=== PATIENT | male | born 1940 | race Caucasian/White ===

== ENCOUNTER → 2016-09-18 | Outpatient (CLI) | payer MEDICARE, BC ==
[~2016-09-18] MED LIST: ASPI-515 PO; CARI350T PO; CHOL200024 PO; CLON2TAB2 PO; DONE10TA7 PO; DOXE100C PO; ESCI20TA PO; METO10TA2 PO; MORP30CA15 PO; NAPR500T8 PO; OXYC1TAB9 PO; OXYC60TA8 PO; SIMV20TA3 PO; TOPI50TA4 PO
== END | disposition home or self-care (01) ==
LOC: CFH 13:34
PROVIDERS: ATTEND Pain Medicine Pain Medicine
DX: Z02.9 Encounter for administrative examinations, unspecified (principal)

== ENCOUNTER 2018-10-25 06:55 | Emergency (ER) | payer MEDICARE, BC ==
[~2018-10-25] VITALS: Ht 175.3 cm; Wt 81.8 kg
[~2018-10-25 06:55] MED LIST changes: -CLON2TAB2 PO; +CLON2TAB9 PO; +OXYC-432 PO; -OXYC1TAB9 PO; -TOPI50TA4 PO; +TOPI50TA8 PO
--- NOTE | 2018-10-25 07:12 | NUR ---
PT BIB [facility] WITH COMPLAINTS OF A GLF AND PAIN 9/10 IN HIS BACK AND "ALL OVER" PT HAS ODOR OF ETOH ON HIS BREATH. PT STATES HE HAS FALLEN 4 TIMES IN THE PAST MONTH. PT HAS O2 SATS IN THE MID TO LOW 80'S. 1 L O2 VIA NASAL CANNULA APPLIED AND O2 SATS IMPROVED TO 96%
--- NOTE | 2018-10-25 07:37 | NUR ---
PT MEDICATED FOR PAIN PER [facility]
[2018-10-25 08:25] VITALS: BP 148/95
== END 2018-10-25 09:27 | disposition home or self-care (01) ==
LOC: ED 09:18
DX: S39.012A Strain of muscle, fascia and tendon of lower back, initial encounter (principal); M51.34 Other intervertebral disc degeneration, thoracic region; M51.36 Other intervertebral disc degeneration, lumbar region; Z90.49 Acquired absence of other specified parts of digestive tract; Z85.46 Personal history of malignant neoplasm of prostate; W18.30XA Fall on same level, unspecified, initial encounter; Y93.89 Activity, other specified; Y92.009 Unspecified place in unspecified non-institutional (private) residence as the place of occurrence of the external cause; Y99.8 Other external cause status
CPT/HCPCS: 72072; 72110; 99283

== ENCOUNTER 2018-11-26 13:45 | Inpatient (IN) | payer MEDICARE, BC ==
[~2018-11-26] VITALS: Ht 172.7 cm; Wt 81.0 kg
[~2018-11-26 13:45] MED LIST changes: +AMLO-150 PO; +CLON2TAB16 PO; +DEXA4TAB PO; +DEXA4TAB66 PO; +PANT40TA5 PO
--- NOTE | 2018-11-26 13:53 | NUR ---
DR COPE AT BEDSIDE TO EVAL PT. PT ARRIVED VIA EMS. PER REPORT PT "SLAMMED MY HAND AGAINST THE DOOR. I WALK WITH A WALKER" PT WITH FULL THICKNESS WOUND TO RIGHT FOREARM
[2018-11-26] MEDS ORDERED: L.E.T SOLUTION TP ONE ×2 (14:00→14:09)
[2018-11-26] MEDS ORDERED: THIAMINE 100MG TABLET PO ONE (14:00)
[2018-11-26] MEDS ORDERED: CEFAZOLIN 1,000 MG IM ONE (14:00)
--- NOTE | 2018-11-26 14:05 | NUR ---
REPORT TO BLUE ARRIOLA
[2018-11-26] MEDS ORDERED: CEFAZOLIN 1,000 MG ONE (14:09)
[2018-11-26] MEDS ORDERED: THIAMINE 100MG TABLET ONE (14:09)
--- NOTE | 2018-11-26 14:20 | NUR ---
ANCEF GIVEN AFTER VERIFIED WITH MD NO BLOOD CULTURES NEEDED FIRST
[2018-11-26 14:22] LABS: BASOPHILS # (AUTO) 0.02 x10^3/uL (0-0.1); BASOPHILS % (AUTO) 0 % (0-1); EOSINOPHILS % (AUTO) 0 % (1-7); LYMPHOCYTES # (AUTO) 0.45 x10^3/uL (1-3.4); LYMPHOCYTES % (AUTO) 5 % (22-44); MD NO; MEAN CORPUSCULAR HEMOGLOBIN 32.2 pg (27.5-34.5); MEAN CORPUSCULAR HGB CONC 32.9 g/dL (33.2-36.2); MEAN CORPUSCULAR VOLUME 97.7 fL (81-97); MEAN PLATELET VOLUME 6.7 fL (7.4-10.4); MONOCYTES # (AUTO) 0.67 x10^3/uL (0.2-0.8); MONOCYTES % (AUTO) 8 % (2-9); NEUTROPHILS # (AUTO) 7.24 x10^3/uL (1.8-6.8); NEUTROPHILS % (AUTO) 86 % (42-75); PLATELET COUNT 370 x10^3/uL (130-400); RED BLOOD COUNT 4.12 x10^6/uL (4.38-5.82)
[2018-11-26 14:33] LABS: ALANINE AMINOTRANSFERASE 17 U/L (12-78); ALBUMIN 3.1 g/dL (3.4-5.0); ANION GAP 21 mmol/L (5-15); CALCIUM 8.1 mg/dL (8.5-10.1); CHLORIDE 106 mmol/L (98-107); CREATININE 1.12 mg/dL (0.7-1.3)
[2018-11-26 14:35] LABS: ALKALINE PHOSPHATASE 178 U/L (45-117); BILIRUBIN,TOTAL 0.3 mg/dL (0.2-1.0); TOTAL PROTEIN 6.1 g/dL (6.4-8.2)
[2018-11-26] MEDS ORDERED: SODIUM CHLORIDE 0.9% 1,000 ML IV ONE (14:43)
[2018-11-26] MEDS ORDERED: SODIUM CHLORIDE FLUSH 10ML SYR IVF ONE (15:00)
[2018-11-26] MEDS ORDERED: SODIUM CHLORIDE 0.9% 1,000ML IVBOLUS ONE (15:00)
[2018-11-26] MEDS ORDERED: LIDOCAINE-MPF 1%, 5ML ONE ×2 (15:53→16:22)
[2018-11-26] MEDS ORDERED: LIDOCAINE 1%, 10ML INFIL ONE (16:00)
--- NOTE | 2018-11-26 16:00 | NUR ---
PT WANTING TO GET UP TO [facility]. SBA PROVIDED. PT WITH INCREASED ANXIETY WHILE SITTING ON COMMODE. INCREASED HR AND RR. ENC RELAXATION BREATHING. "I NEED SOMETHING FOR MY ANXIETY" PT ASSISTED BACK TO [facility]. WILL DISCUSS WITH . PT REPEATIVE AT TIMES "WHAT IS THE PLAN FOR ME?" PT STATES YEAR "2018" PLACE "[facility]
[2018-11-26] MEDS ORDERED: LORazepam 2 MG/ML, 1ML ONE (16:23)
[2018-11-26] MEDS ORDERED: LORazepam 2 MG/ML, 1ML IVPush ONE (16:30)
[2018-11-26 16:34] LABS: ACETONE, SERUM Trace (10mg/dL) mg/dL (Negative)
--- NOTE | 2018-11-26 16:55 | NUR ---
PA COMPLETING SUTURING. PT LESS SHAKY SINCE MEDICATED FOR ANXIETY. FLUIDS CONTINUE TO INFUSE
[2018-11-26] MEDS ORDERED: LORazepam 2 MG/ML, 1ML IVPush PRN ×2 (17:00→17:30)
--- NOTE | 2018-11-26 17:14 | NUR ---
UOB WITH ASSISTANCE. HR UP TO 140 WHEN STANDING AND RATE OF BREATHING INCREASED. HR BACK DOWN WHEN RETURNED TO [facility]
--- NOTE | 2018-11-26 17:23 | NUR ---
REPORT TO XANDER ARRIOLA. PT TO BE TRANSPORTED
[2018-11-26] MEDS ORDERED: HALOPERIDOL 5 MG/ML IM PRN (17:30)
--- NOTE | 2018-11-26 17:32 | NUR ---
HOSPITALIST AT BEDSIDE
[2018-11-26] MEDS: SODIUM CHLORIDE 0.9% 1,000 ML IV SCH (17:44)
[2018-11-26] MEDS ORDERED: hydrALAzine 20 MG/ML, 1ML IVPush PRN (18:00)
[2018-11-26] MEDS ORDERED: ONDANSETRON 2MG/ML, 2ML IVPush PRN (18:00)
[2018-11-26] MEDS ORDERED: ACETAMINOPHEN 325 MG TABLET PO PRN (18:00)
[2018-11-26 18:28] VITALS: BP 158/99
[2018-11-26] MEDS: MORPHINE SULFATE 4 MG/ML, 1ML IVPush PRN ×2 (20:10→23:27)
[2018-11-26] MEDS: POTASSIUM CHLORIDE 20 MEQ, MAGNESIUM SULFATE 1 GM, FOLIC ACID 1 MG, THIAMINE 200 MG, MV... IV SCH (20:11)
[2018-11-26] MEDS: PANTOPROZOLE 40MG TABLET PO SCH (20:11)
[2018-11-26] MEDS: DOXEPIN 100 MG CAPSULE PO SCH (22:13)
[2018-11-27 00:32] LABS: MICROSCOPIC AUTO
[2018-11-27 00:33] LABS: CULTURE INDICATED? NO
[2018-11-27 00:44] LABS: AMPHETAMINE SCREEN, URINE Negative (Negative); BARBITURATE SCREEN, URINE Negative (Negative); BENZODIAZEPINE SCREEN, URINE Negative (Negative); CANNABINOID SCREEN, URINE Positive (Negative); COCAINE SCREEN, URINE Negative (Negative); METHADONE SCREEN, URINE Negative (Negative); OPIATE SCREEN, URINE Positive (Negative)
[2018-11-27 00:49] VITALS: BP 120/77
[2018-11-27] MEDS: MORPHINE SULFATE 4 MG/ML, 1ML IVPush PRN ×5 (04:07→21:13)
[2018-11-27 06:03] LABS: CALCIUM 7.8 mg/dL (8.5-10.1); CHLORIDE 105 mmol/L (98-107)
[2018-11-27 06:09] LABS: ALANINE AMINOTRANSFERASE 17 U/L (12-78); ALBUMIN 2.8 g/dL (3.4-5.0); ALKALINE PHOSPHATASE 153 U/L (45-117); ANION GAP 7 mmol/L (5-15); BILIRUBIN,TOTAL 0.8 mg/dL (0.2-1.0); CREATININE 0.87 mg/dL (0.7-1.3); TOTAL PROTEIN 5.5 g/dL (6.4-8.2)
[2018-11-27] MEDS: PANTOPROZOLE 40MG TABLET PO SCH ×3 (07:34→20:02)
[2018-11-27 08:03] VITALS: BP 150/84
[2018-11-27] MEDS: ESCITALOPRAM 10MG TABLET PO SCH (08:43)
[2018-11-27] MEDS ORDERED: HALOPERIDOL 5 MG/ML IM PRN (09:30)
[2018-11-27] MEDS: LORazepam 2 MG/ML, 1ML IVPush PRN ×2 (11:12→16:55)
[2018-11-27 13:25] VITALS: BP 157/96
[2018-11-27] MEDS: SODIUM CHLORIDE 0.9% 1,000 ML IV SCH (13:55)
[2018-11-27] MEDS ORDERED: POTASSIUM PHOSPHATE 44 MEQ in SODIUM CHLORIDE 0.9% 500 ML IV ONE (16:30)
[2018-11-27] MEDS ORDERED: POTASSIUM CHLORIDE 20 MEQ TAB.ER.PRT PO ONE (16:30)
[2018-11-27] MEDS: DOXEPIN 100 MG CAPSULE PO SCH (20:02)
[2018-11-27 21:12] VITALS: BP 115/73
[2018-11-28 01:09] VITALS: BP 125/82
[2018-11-28] MEDS: POTASSIUM CHLORIDE 20 MEQ, MAGNESIUM SULFATE 1 GM, FOLIC ACID 1 MG, THIAMINE 200 MG, MV... IV SCH (01:32)
[2018-11-28] MEDS: LORazepam 2 MG/ML, 1ML IVPush PRN (04:24)
[2018-11-28 06:04] LABS: CHLORIDE 107 mmol/L (98-107)
[2018-11-28 06:09] LABS: ANION GAP 7 mmol/L (5-15); CALCIUM 7.6 mg/dL (8.5-10.1); CREATININE 0.83 mg/dL (0.7-1.3)
[2018-11-28] MEDS: SODIUM CHLORIDE 0.9% 1,000 ML IV SCH (07:30)
[2018-11-28] MEDS: PANTOPROZOLE 40MG TABLET PO SCH ×2 (07:30→09:15)
[2018-11-28 08:18] VITALS: BP 150/96
[2018-11-28] MEDS: ESCITALOPRAM 10MG TABLET PO SCH (09:15)
[2018-11-28] MEDS ORDERED: LIDODERM 5% PATCH TD SCH (10:30)
[2018-11-28] MEDS ORDERED: MAGNESIUM OXIDE 400 MG TABLET PO SCH (11:00)
[2018-11-28] MEDS ORDERED: FOLIC ACID 1 MG TABLET PO SCH (11:00)
[2018-11-28] MEDS ORDERED: MULTIVITAMIN 1 TABLET PO SCH (11:00)
[2018-11-28] MEDS ORDERED: THIAMINE 100MG TABLET PO SCH (11:00)
[2018-11-28] MEDS ORDERED: OXYcodone/APAP 5/325MG TABLET PO PRN (11:00)
[2018-11-28] MEDS ORDERED: LIDO700A20 TD (13:02)
[2018-11-28] MEDS ORDERED: TRAM50TA2 PO (13:02)
[2018-11-28] MEDS ORDERED: FOLI-17 PO (13:02)
[2018-11-28] MEDS ORDERED: MAGN400T50 PO (13:02)
[2018-11-28] MEDS ORDERED: MULT1TAB60 PO (13:02)
[2018-11-28] MEDS ORDERED: THIA100T67 PO (13:02)
[2018-11-28] MEDS ORDERED: SIMV10TA PO (13:03)
[2018-11-28 13:27] VITALS: BP 148/83
== END 2018-11-28 17:00 | DRG 605 ==
LOC: ED 16:27 → SUATTDRO 16:42 → 4WST 18:21
PROVIDERS: ADMIT Internal Medicine; ATTEND Internal Medicine
PROC: 0HQDXZZ Repair Right Lower Arm Skin, External Approach (ICD-10-PCS; principal; 2018-11-26)
DX: S51.811A Laceration without foreign body of right forearm, initial encounter (principal); E87.2 Acidosis; F11.20 Opioid dependence, uncomplicated; I50.32 Chronic diastolic (congestive) heart failure; F10.239 Alcohol dependence with withdrawal, unspecified; F10.229 Alcohol dependence with intoxication, unspecified; E83.39 Other disorders of phosphorus metabolism; E78.5 Hyperlipidemia, unspecified; E86.0 Dehydration; F32.9 Major depressive disorder, single episode, unspecified; G89.4 Chronic pain syndrome; I11.0 Hypertensive heart disease with heart failure; M79.7 Fibromyalgia; W18.39XA Other fall on same level, initial encounter; F12.90 Cannabis use, unspecified, uncomplicated; R29.6 Repeated falls; M54.5 Low back pain; R00.0 Tachycardia, unspecified; Z80.0 Family history of malignant neoplasm of digestive organs; Z85.46 Personal history of malignant neoplasm of prostate; Z92.3 Personal history of irradiation; Y93.89 Activity, other specified; Y92.89 Other specified places as the place of occurrence of the external cause; Y99.8 Other external cause status
CPT/HCPCS: 12034; 36415; 70450; 71045; 80048; 80053; 80307; 81001; 82010; 83605; 83735; 84100; 84145; 85025; 87040; 93005; 96372; 96374; 99291; G0378; J0690; J2405; J3411; J3475; J3480; J7070; J2060; J2270; J7030; J7040

== ENCOUNTER 2018-11-28 14:13 | Inpatient (IN) | payer MEDICARE, BC ==
[~2018-11-28] VITALS: Ht 175.3 cm; Wt 78.3 kg
[~2018-11-28 14:13] MED LIST changes: +FOLI-17 PO; +LIDO700A20 TD; +MAGN400T50 PO; +MULT1TAB60 PO; +SIMV10TA PO; +THIA100T67 PO; +TRAM50TA2 PO
[2018-11-28] MEDS ORDERED: POLYETHYLENE GLYCOL 17 GM PACKET PO PRN (14:30)
[2018-11-28] MEDS ORDERED: DOCUSATE 100 MG CAPSULE PO PRN (14:30)
[2018-11-28] MEDS ORDERED: BISACODYL 10 MG SUPP PR PRN (14:30)
[2018-11-28] MEDS ORDERED: PLEASE ENTER HEIGHT AND WEIGHT MC SCH (17:26)
[2018-11-28 17:58] VITALS: BP 148/79
[2018-11-28 18:18] LABS: ALBUMIN 2.5 g/dL (3.4-5.0); ANION GAP 6 mmol/L (5-15); CHLORIDE 106 mmol/L (98-107)
[2018-11-28 18:46] LABS: ALANINE AMINOTRANSFERASE 19 U/L (12-78); ALKALINE PHOSPHATASE 144 U/L (45-117); BILIRUBIN,TOTAL 0.4 mg/dL (0.2-1.0); CHOL/HDL RATIO 1.8; CHOLESTEROL, TOTAL 131 mg/dL (140-239); CREATININE 0.98 mg/dL (0.7-1.3); HDL CHOL % 56 % (26-37); HDL CHOLESTEROL (DIRECT) 74 mg/dL (40-60); LDL CHOLESTEROL,CALCULATED 44 mg/dL (54-169); LDL/HDL RATIO 0.6 (0.5-3.0); TOTAL PROTEIN 5.5 g/dL (6.4-8.2); TRIGLYCERIDES 64 mg/dL (50-200); VLDL CHOLESTEROL 13 mg/dL (0-25)
[2018-11-28 19:26] LABS: HCT (SEDRATE) 33.4 % (39.2-51.8); MEAN CORPUSCULAR HEMOGLOBIN 33.8 pg (27.5-34.5); MEAN CORPUSCULAR HGB CONC 33.6 g/dL (33.2-36.2); MEAN CORPUSCULAR VOLUME 100.6 fL (81-97); MEAN PLATELET VOLUME 6.7 fL (7.4-10.4); PLATELET COUNT 219 x10^3/uL (130-400); RED BLOOD COUNT 3.32 x10^6/uL (4.38-5.82); RED CELL DISTRIBUTION WIDTH 15.3 % (9.4-14.8)
[2018-11-28 19:28] LABS: MD YES
[2018-11-28 19:29] LABS: EOS#(MANUAL) 0.05 x10^3/uL (0.0-0.4); EOS% (MANUAL) 1 % (1-7); LYMPHS% (MANUAL) 22 % (22-44); MONOS% (MANUAL) 6 % (2-9); REACTIVE LYMPHS % (MANUAL) 2 % (0-0); SEG#(MANUAL) 3.45 x10^3/uL (1.8-6.8); SEGS% (MANUAL) 69 % (42-75)
[2018-11-28 19:30] LABS: <PLATELET ESTIMATE> ADEQUATE; ANISOCYTOSIS 1+; LARGE PLATELETS 1+; TOXIC GRAN 1+
[2018-11-28 20:13] VITALS: BP 148/79
[2018-11-28] MEDS ORDERED: MELATONIN 3 MG TABLET ONE (20:44)
[2018-11-28] MEDS ORDERED: MELATONIN 3 MG TABLET PO SCH (21:00)
[2018-11-29] MEDS: ONDANSETRON ODT 4 MG PO PRN (00:59)
[2018-11-29 02:39] LABS: MICROSCOPIC NOT IND
[2018-11-29 02:41] LABS: CULTURE INDICATED? NO
[2018-11-29 07:23] VITALS: BP 137/75
[2018-11-29] MEDS: BUPRENORPHINE/NALOXONE 2-0.5MG SL SCH (15:19)
[2018-11-29] MEDS: TIZANIDINE 4MG TABLET PO SCH ×3 (15:24→20:29)
[2018-11-29] MEDS: DULOXETINE 30 MG CAPSULE.DR PO SCH ×2 (16:23→20:29)
[2018-11-29 20:06] VITALS: BP 134/73
[2018-11-30 07:35] VITALS: BP 134/86
[2018-11-30] MEDS: DULOXETINE 30 MG CAPSULE.DR PO SCH ×2 (08:53→20:52)
[2018-11-30] MEDS: TIZANIDINE 4MG TABLET PO SCH ×3 (09:00→20:52)
[2018-11-30] MEDS: BUPRENORPHINE/NALOXONE 2-0.5MG SL SCH (11:06)
[2018-11-30] MEDS ORDERED: LIDODERM 5% PATCH TD ONE (13:00)
[2018-11-30 17:12] VITALS: BP 150/92
[2018-11-30 20:00] VITALS: BP 121/86
[2018-12-01 07:10] VITALS: BP 148/91
[2018-12-01] MEDS: BUPRENORPHINE/NALOXONE 2-0.5MG SL SCH (07:59)
[2018-12-01] MEDS: TIZANIDINE 4MG TABLET PO SCH ×3 (07:59→21:16)
[2018-12-01] MEDS: DULOXETINE 30 MG CAPSULE.DR PO SCH ×2 (08:31→21:16)
[2018-12-01] MEDS ORDERED: LIDODERM 5% PATCH TD SCH (09:00)
[2018-12-01] MEDS: ONDANSETRON ODT 4 MG PO PRN (12:17)
[2018-12-01] MEDS: LIDOCAINE GEL 2%, 5ML TP PRN (12:35)
[2018-12-01 21:21] VITALS: BP 121/77
[2018-12-02 07:30] VITALS: BP 155/75
[2018-12-02] MEDS: DULOXETINE 30 MG CAPSULE.DR PO SCH ×2 (08:39→20:26)
[2018-12-02] MEDS: BUPRENORPHINE/NALOXONE 2-0.5MG SL SCH (08:40)
[2018-12-02] MEDS: TIZANIDINE 4MG TABLET PO SCH ×3 (08:40→20:26)
[2018-12-02] MEDS: ONDANSETRON ODT 4 MG PO PRN (08:58)
[2018-12-02 19:30] VITALS: BP 105/66
[2018-12-02] MEDS: LIDOCAINE GEL 2%, 5ML TP PRN (21:12)
[2018-12-03 02:49] LABS: MICROSCOPIC NOT IND
[2018-12-03 03:05] LABS: CULTURE INDICATED? NO
[2018-12-03] MEDS ORDERED: PHENAZOPYRIDINE 100 MG TABLET PO ONE (07:00)
[2018-12-03 07:26] VITALS: BP 117/82
[2018-12-03] MEDS: DULOXETINE 30 MG CAPSULE.DR PO SCH ×2 (07:36→20:09)
[2018-12-03] MEDS: BUPRENORPHINE/NALOXONE 2-0.5MG SL SCH (07:37)
[2018-12-03] MEDS: TIZANIDINE 4MG TABLET PO SCH ×3 (07:37→20:09)
[2018-12-03 15:46] LABS: MEAN CORPUSCULAR HEMOGLOBIN 33.1 pg (27.5-34.5); MEAN CORPUSCULAR HGB CONC 32.9 g/dL (33.2-36.2); MEAN CORPUSCULAR VOLUME 100.6 fL (81-97); MEAN PLATELET VOLUME 6.9 fL (7.4-10.4); PLATELET COUNT 450 x10^3/uL (130-400); RED CELL DISTRIBUTION WIDTH 15.5 % (9.4-14.8)
[2018-12-03 15:47] LABS: MD YES
[2018-12-03 15:50] LABS: BAND#(MANUAL) 0.05 x10^3/uL; BANDS%(MANUAL) 1 % (0-7); BASOS#(MANUAL) 0.05 x10^3/uL (0-0.1); BASOS% (MANUAL) 1 % (0-1); METAMYELOCYTES# (MANUAL) 0.05 x10^3/uL (0-0); METAMYELOCYTES% (MANUAL) 1 % (0-1)
[2018-12-03 15:51] LABS: SEGS% (MANUAL) 45 % (42-75)
[2018-12-03 15:55] LABS: EOS#(MANUAL) 0.25 x10^3/uL (0.0-0.4); EOS% (MANUAL) 5 % (1-7); LYMPH#(MANUAL) 1.42 x10^3/uL (1-3.4); LYMPHS% (MANUAL) 29 % (22-44); MONOS#(MANUAL) 0.74 x10^3/uL (0.3-2.7); MONOS% (MANUAL) 15 % (2-9); MYELOCYTES# (MANUAL) 0.05 x10^3/uL (0-0); MYELOCYTES% (MANUAL) 1 % (0-0); REACTIVE LYMPHS % (MANUAL) 2 % (0-0); SEG#(MANUAL) 2.21 x10^3/uL (1.8-6.8)
[2018-12-03 16:02] LABS: ANISOCYTOSIS 1+; SMUDGE CELLS 1+
[2018-12-03 16:03] LABS: <PLATELET ESTIMATE> INCREASED; LARGE PLATELETS 1+
[2018-12-03 18:43] VITALS: BP 124/73
[2018-12-03 19:31] VITALS: BP 112/77
[2018-12-03] MEDS: CEPHALEXIN 500 MG CAPSULE PO SCH (20:09)
[2018-12-03] MEDS: LIDOCAINE GEL 2%, 5ML TP PRN (20:53)
[2018-12-03] MEDS ORDERED: MELATONIN 3 MG TABLET PO SCH (21:00)
[2018-12-04] MEDS: LIDOCAINE GEL 2%, 5ML TP PRN (04:26)
[2018-12-04 07:28] VITALS: BP 153/102
[2018-12-04] MEDS: TIZANIDINE 4MG TABLET PO SCH ×3 (07:29→20:01)
[2018-12-04] MEDS: BUPRENORPHINE/NALOXONE 2-0.5MG SL SCH ×2 (07:29→20:02)
[2018-12-04] MEDS: DULOXETINE 30 MG CAPSULE.DR PO SCH ×2 (07:29→20:01)
[2018-12-04] MEDS: CEPHALEXIN 500 MG CAPSULE PO SCH ×2 (07:29→20:01)
[2018-12-04 08:52] VITALS: BP 130/91
[2018-12-04] MEDS: ONDANSETRON ODT 4 MG PO PRN (11:05)
[2018-12-04 19:14] VITALS: BP 126/77
[2018-12-04] MEDS: DOXEPIN 25 MG CAPSULE PO SCH (20:04)
[2018-12-05 07:36] VITALS: BP 114/76
[2018-12-05] MEDS: BUPRENORPHINE/NALOXONE 2-0.5MG SL SCH ×2 (07:55→21:06)
[2018-12-05] MEDS: TIZANIDINE 4MG TABLET PO SCH ×3 (07:55→21:06)
[2018-12-05] MEDS: CEPHALEXIN 500 MG CAPSULE PO SCH ×2 (07:55→21:06)
[2018-12-05] MEDS: DULOXETINE 30 MG CAPSULE.DR PO SCH ×2 (07:55→21:06)
[2018-12-05 19:39] VITALS: BP 112/73
[2018-12-05] MEDS: DOXEPIN 25 MG CAPSULE PO SCH (21:06)
[2018-12-06 07:30] VITALS: BP 108/77
[2018-12-06] MEDS: ALUMINUM/MAG/SIMETHICONE 30 ML UDC PO PRN (07:33)
[2018-12-06] MEDS: TIZANIDINE 4MG TABLET PO SCH ×3 (09:27→21:15)
[2018-12-06] MEDS: BUPRENORPHINE/NALOXONE 2-0.5MG SL SCH ×2 (09:27→21:15)
[2018-12-06] MEDS: CEPHALEXIN 500 MG CAPSULE PO SCH ×2 (09:27→21:14)
[2018-12-06] MEDS: DULOXETINE 30 MG CAPSULE.DR PO SCH ×2 (09:27→21:14)
[2018-12-06 19:55] VITALS: BP 98/61
[2018-12-06] MEDS: DOXEPIN 25 MG CAPSULE PO SCH (21:15)
[2018-12-07 07:11] VITALS: BP 113/79
[2018-12-07] MEDS: ONDANSETRON ODT 4 MG PO PRN (07:37)
[2018-12-07] MEDS: ALUMINUM/MAG/SIMETHICONE 30 ML UDC PO PRN (07:38)
[2018-12-07] MEDS: CEPHALEXIN 500 MG CAPSULE PO SCH ×2 (08:29→21:03)
[2018-12-07] MEDS: TIZANIDINE 4MG TABLET PO SCH ×3 (08:29→21:03)
[2018-12-07] MEDS: DULOXETINE 30 MG CAPSULE.DR PO SCH ×2 (08:29→21:03)
[2018-12-07] MEDS: BUPRENORPHINE/NALOXONE 2-0.5MG SL SCH ×2 (09:49→21:03)
[2018-12-07 19:46] VITALS: BP 108/75
[2018-12-07] MEDS: DOXEPIN 25 MG CAPSULE PO SCH (21:04)
[2018-12-08] MEDS: ONDANSETRON ODT 4 MG PO PRN ×2 (03:17→12:47)
[2018-12-08 07:15] VITALS: BP 114/72
[2018-12-08] MEDS: BUPRENORPHINE/NALOXONE 2-0.5MG SL SCH ×2 (08:13→20:54)
[2018-12-08] MEDS: DULOXETINE 30 MG CAPSULE.DR PO SCH ×2 (08:13→20:53)
[2018-12-08] MEDS: TIZANIDINE 4MG TABLET PO SCH ×3 (08:13→20:54)
[2018-12-08] MEDS: CEPHALEXIN 500 MG CAPSULE PO SCH ×2 (08:13→20:54)
[2018-12-08] MEDS: GABAPENTIN 300 MG CAPSULE PO SCH ×3 (09:51→20:54)
[2018-12-08 19:40] VITALS: BP 108/69
[2018-12-08] MEDS: DOXEPIN 25 MG CAPSULE PO SCH (20:53)
[2018-12-08] MEDS: MELOXICAM 15 MG TABLET PO SCH (20:54)
[2018-12-09 07:12] VITALS: BP 115/72
[2018-12-09] MEDS: DULOXETINE 30 MG CAPSULE.DR PO SCH ×2 (08:42→20:24)
[2018-12-09] MEDS: TIZANIDINE 4MG TABLET PO SCH ×3 (08:43→20:24)
[2018-12-09] MEDS: CEPHALEXIN 500 MG CAPSULE PO SCH ×2 (08:43→20:23)
[2018-12-09] MEDS: GABAPENTIN 300 MG CAPSULE PO SCH ×3 (08:43→20:24)
[2018-12-09] MEDS: BUPRENORPHINE/NALOXONE 2-0.5MG SL SCH ×2 (08:43→20:24)
[2018-12-09] MEDS ORDERED: GABA300C10 PO (11:42)
[2018-12-09] MEDS ORDERED: MELO15TA24 PO (11:42)
[2018-12-09] MEDS ORDERED: DULO30CA2 PO (11:42)
[2018-12-09] MEDS ORDERED: DOXE25CA PO (11:42)
[2018-12-09] MEDS: ONDANSETRON ODT 4 MG PO PRN (17:48)
[2018-12-09 19:27] VITALS: BP 95/62
[2018-12-09] MEDS: DOXEPIN 25 MG CAPSULE PO SCH (20:23)
[2018-12-09] MEDS: MELOXICAM 15 MG TABLET PO SCH (20:23)
[2018-12-10 07:16] VITALS: BP 100/57
[2018-12-10] MEDS: GABAPENTIN 300 MG CAPSULE PO SCH (08:09)
[2018-12-10] MEDS: CEPHALEXIN 500 MG CAPSULE PO SCH (08:09)
[2018-12-10] MEDS: DULOXETINE 30 MG CAPSULE.DR PO SCH (08:09)
[2018-12-10] MEDS: BUPRENORPHINE/NALOXONE 2-0.5MG SL SCH (08:10)
[2018-12-10] MEDS: TIZANIDINE 4MG TABLET PO SCH (08:10)
== END 2018-12-10 11:40 | disposition home or self-care (01) | DRG 885 ==
LOC: 3E 14:13 → UNDOADMIN 14:13 → 3E 17:21
PROVIDERS: ADMIT Psychiatry & Neurology Psychosomatic Medicine; ATTEND Psychiatry & Neurology Psychosomatic Medicine
DX: F33.2 Major depressive disorder, recurrent severe without psychotic features (principal); E87.2 Acidosis; F11.20 Opioid dependence, uncomplicated; I50.32 Chronic diastolic (congestive) heart failure; F10.229 Alcohol dependence with intoxication, unspecified; E78.5 Hyperlipidemia, unspecified; E83.39 Other disorders of phosphorus metabolism; F43.21 Adjustment disorder with depressed mood; G47.00 Insomnia, unspecified; G89.29 Other chronic pain; I11.0 Hypertensive heart disease with heart failure; K21.9 Gastro-esophageal reflux disease without esophagitis; M54.5 Low back pain; R00.0 Tachycardia, unspecified; Z79.899 Other long term (current) drug therapy; Z80.0 Family history of malignant neoplasm of digestive organs; Z85.46 Personal history of malignant neoplasm of prostate; Z91.81 History of falling; Z92.3 Personal history of irradiation
CPT/HCPCS: 36415; 80053; 80061; 81003; 82140; 82607; 84436; 84443; 85025; 85651; 86592; 93005; Q0162; 92523-GN